=== PATIENT | male | born 1975 | race Caucasian/White ===

== ENCOUNTER 2018-12-31 12:57 | Outpatient (CLI) | payer OTHER ==
--- NOTE | 2018-12-31 14:20 | Diagnostic Imaging Report ---
Indication:Scrotal pain Technique: Real time grayscale and duplex Doppler imaging of the scrotum performed. Comparison: None Findings: The size, contour, and echogenicitiy of the testis appear normal bilaterally. Small bilateral hydroceles are present. There is no testicular mass or evidence of torsion. There is good doppler evidence of blood flow within both testes. Epididimi are unremarkable. There is no evidence of an abnormal fluid collection or mass in the area of the perineum. In the supra scrotal region with Valsalva there is increased vascularity demonstrated on color flow images bilaterally. Findings likely indicate presence of small bilateral varicoceles. Right testis measures 5.5 x 2.5 x 4.2 cm. Left testis 5.2 x 2.3 x 3.3 cm. Impression: Small bilateral hydroceles. Small suspected bilateral varicoceles. No perineal fluid collection or mass
== END 2018-12-31 14:57 | disposition home or self-care (01) ==
LOC: ULS 12:57
DX: R10.2 Pelvic and perineal pain (principal); N43.3 Hydrocele, unspecified
CPT/HCPCS: 76870